=== PATIENT | female | born 1995 | race Caucasian/White ===

== ENCOUNTER 2018-08-22 02:33 | Outpatient (CLI) | payer OTHER ==
[~2018-08-22] VITALS: Ht 154.9 cm; Wt 76.4 kg
--- NOTE | 2018-08-22 02:45 | NUR ---
Pt arrived on unit ambulatory escorted by and with complaints of contractions starting around midnight. Pt denies any leaking of fluid, vaginal bleeding and reports normal movement. EFM and toco monitors placed. Vital signs WNL. Plan of care for labor assessment reviewed.
--- NOTE | 2018-08-22 03:00 | NUR ---
Spoke with Dr. Lentz for an update on pt's status with arrival, SVE, ctx pattern and FHR tracing reviewed. Orders for labor assessment received.
[2018-08-22] MEDS ORDERED: PRENATAL (03:12)
[2018-08-22 03:30] VITALS: BP 119/72; PULSE 103; TEMP 97.7
--- NOTE | 2018-08-22 04:10 | NUR ---
Order for discharge home received. Information reviewed with pt and at the bedside. Both verbalized an understanding, agree with the plan and state no questions at this time.
== END 2018-08-22 04:10 | disposition home or self-care (01) ==
LOC: LDRO 02:33
DX: O62.9 Abnormality of forces of labor, unspecified (principal); Z3A.35 35 weeks gestation of pregnancy

== ENCOUNTER 2018-09-11 07:00 | Inpatient (IN) | payer OTHER ==
[~2018-09-11] VITALS: Ht 155 cm; Wt 77.3 kg
[2018-09-11] VITALS (55 sets, daily range): BP systolic 103–167; BP diastolic 50–91; PULSE 57–151; TEMP 97.7–98.6
[~2018-09-11 07:00] MED LIST: PRENATAL
--- NOTE | 2018-09-11 07:10 | NUR ---
Patient ambulatory to LR5 with spouse, changed into gown, FHR/TOCO monitor placed. Patient denies contractions,leaking of fluid, vaginal bleeding. Plan of care discussed. 0720: SVE-2/60/-2, patient tolerates well. 0730: IV started in left hand, blood drawn and to lab, LR infusing. Assessment completed, Consents gone over, and questions answered.
[2018-09-11 07:55] LABS: BASO % 0.2 % (0.0-2.0); EOS # 0.1 (0.0-0.7); EOS % 0.8 % (0-4.0); GRAN # 6.4 (1.4-6.5); GRAN % 66.7 % (42.2-75.2); HEMOGLOBIN 11.7 g/dl (12.5-16.0); LYMPH # 2.5 (1.2-3.4); LYMPH % 25.8 % (20.0-51.0); MEAN CELL VOLUME 94 fl (80.0-100.0); MEAN CORPUSCULAR HEMOGLOBIN 33 pg (27.0-31.0); MEAN CORPUSCULAR HGB CONC 35 g/dl (33.0-37.0); MEAN PLATELET VOLUME 11.1 fl (7.4-10.4); MONO # 0.6 (0.1-0.6); MONO % 6.1 % (1.7-9.3); PLATELET COUNT 237 K/mm3 (130-400); RED BLOOD COUNT 3.57 M/mm3 (4.10-5.30)
[2018-09-11 07:56] LABS: HEMATOCRIT 33.6 % (37.0-47.0)
--- NOTE | 2018-09-11 08:50 | NUR ---
Dr Hayes at bedside assessing patient and FHR strip. Discusses plan of care. 0855: SVE per physician / and AROM at this time clear fluid noted. Patient tolerates well and repositioned.
--- NOTE | 2018-09-11 09:55 | NUR ---
Patient requesting epidural and Dulce Cruz FEATHER TRIMMER notified. 1010: Patient off monitor to void. LR bolus started. 1030: Patient sits up on edge of bed for placement of epidural. Awilda FEATHER TRIMMER at bedside for procedure. Difficulty tracing FHR due to materanal position. 1036: Single Shot given and patient tolerates well. 1040: Patient repositioned and becoming more comfortable. Plan of care discuused and patient verbalizes understanding. Will continue to monitor.
--- NOTE | 2018-09-11 13:10 | NUR ---
SVE at this time, /-2. Pericare done and pt repositioned to left side.
[2018-09-11] MEDS ORDERED: PERCOCET 325 MG1 TA2 PO (14:40)
[2018-09-11] MEDS ORDERED: MOTRIN 800800 MG/TAB PO (14:40)
--- NOTE | 2018-09-11 15:35 | NUR ---
SVE: /-2. Pt comfortable with epidural. 2nd dose of Ancef infused via IVPB. Pt comfortable with epidural. Pericare done and pt repositioned to a sitting up position. Dr Hayes called and updated, orders to keep increasing pitocin to 20mu. See physician notification.
--- NOTE | 2018-09-11 16:28 | NUR ---
Dr Hayes here and at bedside. SVE: 2. Pericare done and pt repositioned to right side with peanut ball. Plan to recheck at 1730 per physician. 1638: deceleration noted. Pt repositioned to left lateral. FHR decreasing to 805-90bpm for 2 minutes. Pitocin off, O2 on at 10L per mask. Dr Hayes at bedside evaluating. SVE per physican, 1. Pt wedged to left side and order received to turn pitocin on at this time. Physician here and continues to monitor.
--- NOTE | 2018-09-11 17:00 | NUR ---
recurrent late decelerations noted, Dr Hayes here and monitoring heart rate. SVE per physician, 10/100/0. 1703:Dr Hayes at bedside and pt starts to push with contractions. Instructions given. at bedside. 02 on at 10l per mask inbetween contractions. Positive scalp stimulation and moderate variability noted at this time. Pt continues to push with contractions with physician at bedside monitoring heart rate. Intermittent variable decels noted, pt continues to push. 1720:late decelerations noted. Pt continues to push with contractions and physician at bedside pushing with pt and evaluating FHT's. 1740:Physician discusses options with pt and . Pt requests to attempt vacuum extraction at this time and understands risks and agrees to c/section delivery if unsuccessful. Pt prepped for delivery. Glaser removed. 1745:Vac placed for 45 seconds while pt pushing. 1748:Vac placed for 15 seconds while pt pushing, one pop off. 1751:Vac placed for 35 seconds while pt pushing. No progress made. 1752:Decision made to have section at this time. Pt prepped for surgery, Hayley TURNER notified. Glaser catheter replaced and abdomen scrubed. O2 remains on at 10Lper mask. 1800:Report given to Devin ZAMAN. 1804:Pt ot OR via bed.
--- NOTE | 2018-09-11 18:37 | NUR ---
CORD BLOOD GASSES PLACENTA TO PATH
--- NOTE | 2018-09-11 20:48 | NUR ---
URINE DARK BOYD
[2018-09-12 03:00] VITALS: BP 98/50; PULSE 85; TEMP 98.7
[2018-09-12 09:01] VITALS: BP 116/73; PULSE 84; TEMP 97.7
--- NOTE | 2018-09-12 09:17 | NUR ---
Initial visit attempt; Family resting. Tire Design Engineer left card of congratulaions for the of their daughter and informations regarding the availability of spiritual care at our hospital.
[2018-09-12 14:30] VITALS: BP 98/49; PULSE 75; TEMP 97.6
[2018-09-12 19:00] VITALS: BP 102/58; PULSE 78; TEMP 97.6
--- NOTE | 2018-09-12 19:00 | NUR ---
TEARFUL, UPSET BABY IS AT [facility]. MOTHER AND SPOUSE SUPPORTIVE. HX DEPRESSION PTS MOTHER HAS TOLD NURSING STAFF.BABYS FATHER GOING TO SEE BABY THIS ASHLEY
[2018-09-13 03:00] VITALS: BP 93/55; PULSE 86; TEMP 98.2
[2018-09-13 09:00] VITALS: BP 125/76; PULSE 78; TEMP 97.8
== END 2018-09-13 16:15 | disposition home or self-care (01) | DRG 788 ==
LOC: LDR 07:00 → OB 07:00 → LDR 07:11 → OB 19:45
PROVIDERS: ADMIT Obstetrics & Gynecology
PROC: 10D00Z1 Extraction of Products of Conception, Low, Open Approach (ICD-10-PCS; principal; 2018-09-11)
PROC: 3E033VJ Introduction of Other Hormone into Peripheral Vein, Percutaneous Approach (ICD-10-PCS; 2018-09-11)
PROC: 10907ZC Drainage of Amniotic Fluid, Therapeutic from Products of Conception, Via Natural or Artificial Opening (ICD-10-PCS; 2018-09-11)
PROC: 10907ZC Drainage of Amniotic Fluid, Therapeutic from Products of Conception, Via Natural or Artificial Opening (ICD-10-PCS; 2018-09-11)
DX: O62.1 Secondary uterine inertia (principal); Z3A.38 38 weeks gestation of pregnancy; Z37.0 Single live birth; O99.824 Streptococcus B carrier state complicating childbirth; O36.5930 Maternal care for other known or suspected poor fetal growth, third trimester, not applicable or unspecified; O76 Abnormality in fetal heart rate and rhythm complicating labor and delivery; O99.02 Anemia complicating childbirth; D64.9 Anemia, unspecified; O75.89 Other specified complications of labor and delivery; Z88.0 Allergy status to penicillin; O99.344 Other mental disorders complicating childbirth; F32.9 Major depressive disorder, single episode, unspecified
CPT/HCPCS: J0690; J1885; J2175; J2370; J2405; J2590; J2795; J3010; J7120

== ENCOUNTER 2019-02-16 11:04 | Day surgery (SDC) | payer OTHER ==
[~2019-02-16] VITALS: Ht 154.9 cm; Wt 67.9 kg
[~2019-02-16 11:04] MED LIST changes: +MOTRIN 800800 MG/TAB PO; +PERCOCET 325 MG1 TA2 PO
[2019-02-16 11:32] VITALS: BP 110/68; PULSE 75; TEMP 98
[2019-02-16] MEDS ORDERED: SPRINTEC 35 MCG1 TAB PO (11:32)
[2019-02-16 14:05] VITALS: BP 113/63; PULSE 81; TEMP 98
--- NOTE | 2019-02-16 14:05 | NUR ---
Patient arrives to [facility] [address] via cart, accompanied by [employer]ICAL GRADE SHOEMAKER Dianne. She is alert and oriented. She denies pain or nausea. Monitoring applied - VSS and WNL on room air. Her family is out driving around, as she has her 5 month old daughter with her and her - will bring back to post-op bay when they return. Offered and receives juice and a muffin to eat. Call light in reach. Will continue to monitor.
[2019-02-16 14:20] VITALS: BP 108/57; PULSE 81
--- NOTE | 2019-02-16 14:20 | NUR ---
Patient is resting comfortably in room. Denies any pain, nausea, or need. Tolerating PO well.
--- NOTE | 2019-02-16 14:27 | NUR ---
Patient's and daughter arrive back to the waiting room and are let back to see patient at this time.
[2019-02-16 14:35] VITALS: BP 108/61; PULSE 83
--- NOTE | 2019-02-16 14:35 | NUR ---
VSS and WNL on room air. Denies any pain, nausea, or need at this time.
--- NOTE | 2019-02-16 14:37 | NUR ---
Patient up to restroom at this time. Voids, and returns to room.
--- NOTE | 2019-02-16 14:59 | NUR ---
Patient states "I'm ready to go home". She has met discharge criteria. Discharge instructions discussed, denies any questions, and verbalizes understanding. is at the bedside for instructions. PIV removed with catheter intact and hemostasis achieved. Changes to clothing independently. Escorted to exit via wheelchair. Discharged to home with ride in private vehicle at 1459.
== END 2019-02-16 14:59 | disposition home or self-care (01) ==
LOC: SDCO 11:04
DX: N13.2 Hydronephrosis with renal and ureteral calculous obstruction (principal); F17.210 Nicotine dependence, cigarettes, uncomplicated; Z88.0 Allergy status to penicillin; Z79.52 Long term (current) use of systemic steroids; Z80.42 Family history of malignant neoplasm of prostate; Z88.2 Allergy status to sulfonamides
CPT/HCPCS: J0690; J1100; J1885; J2405; J2704; J3010; J7120; Q9967